=== PATIENT | male | born 1970 | race Caucasian/White ===

== ENCOUNTER 2017-11-14 15:55 | Emergency (ER) | payer OTHER ==
[~2017-11-14] VITALS: Ht 172.7 cm; Wt 91.0 kg
[~2017-11-14 15:55] MED LIST: AMPH20TA2 PO; OXYC-57 PO; TRAM-10 PO; TRAZ50TA35 PO
[2017-11-14 15:56] VITALS: TEMP 36.8; Ht 172.7 cm; Wt 91.0 kg
[2017-11-14] MEDS ORDERED: PROPARACAINE HCL 0.5% OP SOLN 15 ML BTL OP STA (16:06)
[2017-11-14] MEDS ORDERED: AMPH10TA2 PO (16:28)
[2017-11-14] MEDS ORDERED: OXYC-57 PO (16:45)
--- NOTE | 2017-11-14 16:45 | EMERGENCY ROOM VISIT NOTE ---
History First contact with patient: 15:58 Chief Complaint: EYE ASSESSMENT Stated Complaint: GOT SOMETHING IN EYE History of Present Illness The patient is a 47 year old male who presents to the Emergency Room via private vehicle accompanied by male with complaints of "got something in eye". The patient states that earlier today he was carrying a box, and the flap came up and struck him in the right eye. He notes pain rated as a 10/10 in this eye. He states that it is difficult to open the eye secondary to pain. He notes some decreased vision but no vision loss. There is also photophobia. He notes a history of a torn retina years ago. Tetanus UTD. Review of Systems A complete 6-point Review of Systems was discussed with the patient, with pertinent positives and negatives listed in the History of Present Illness. All remaining Review of Systems questions can be considered negative unless otherwise specified. Past Medical/Surgical History Medical Problems: (1) ATTN DEFICIT W HYPERACT (2) DEPRESSIVE DISORDER NEC Social History Alcohol Use: none Drug Use: none Marital Status: Housing Status: lives with family Occupation Status: employed Current/Historical Medications Scheduled Amphetamine-Dextroamphetamine 10MG (Adderall 10MG), 10 MG PO BID Scheduled PRN Oxycodone/Acetaminophen 5MG/325MG (Percocet 5MG/325MG), 1 TAB PO Q4H PRN for Pain Physical Exam Vital Signs Date Time Temp Pulse Resp B/P (MAP) Pulse Ox O2 Delivery O2 Flow Rate FiO2 11/14/17 17:19 89 16 129/80 96 11/14/17 15:56 36.8 93 18 135/85 97 Room Air Right Eye Acuity: 20/70, without correction Left Eye Acuity: 20/30 Physical Exam VITAL SIGNS - Vital signs and nursing notes were reviewed. Stable. GENERAL - 47-year-old male appearing his stated age. Communicates well with provider and answers questions appropriately. HEAD - Normocephalic, Atraumatic. No Gonzalez's Sign or Raccoon's Eyes. No depressed skull fractures palpable. EYES - PERRL with EOMI bilaterally. Sclera without noticeable foreign body or excoriations. bulbar injection noted in the bilateral eyes. Without subconjunctival hemorrhage. Palpebral conjunctiva pink and moist with no injection or discharge noted. Slit lamp examination performed as further described. EARS - No deformities of external structures noted on gross examination bilaterally. Handle of malleus, umbo, cone of light, pars tensa/flaccid all easily visualized. NOSE - Midline and without cyanosis. Without discharge. Slit Lamp Examination was performed of the R eye(s). Alcaine drops were applied to the affected eye(s) for proper anesthetization. The affected eye(s) were stained with Fluorescein stain to precipitate adequate visualization of any conjunctival/scleral excoriations or ulcers. The patient's face was comfortably rested on the chin guard of the slit lamp apparatus. The lights were dimmed and the affected eye(s) were thoroughly examined under microscopy using the blue light. Diffuse 1oclock medial/superior R corneal uptake was present in the R eye. Additionally, the eye(s) were examined under microscopy using the regular light. Close examination revealed a small corneal laceration. Patient tolerated the procedure well and no complications were met. Medical Decision & Procedures Medications Administered Medications (Trade) Dose Ordered Sig/Jonathon Route Start Time Stop Time Status Last Admin Dose Admin Ofloxacin (Ocuflox 0.3% Oph Soln) 1 drops NOW STAT OP 11/14/17 16:55 11/14/17 16:56 DC 11/14/17 17:19 1 DROPS Medical Decision Patient was seen and evaluated as above. He presents with R eye pain. Slit lamp reveals R eye corneal laceration with uptake persistence after rinsing stain. Negative Octavia sign. No hyphema. Alcaine alleviated pain. I called Dr. Jiang ( dye lab technician) and discussed case. He will be started on ofloxacin and percocet. He is to follow up with Dr. Jiang's office tomorrow by calling them tomorrow am. He is to return with worsening. The patient was educated upon management, had questions answered prior to discharge, and was discharged home in good condition. No red flags in PDMP. In the evaluation and treatment of this patient, the following differential diagnoses were considered: Corneal Abrasion, Conjunctivitis, Eye Contusion, Globe Injury, Orbital Floor Injury (Blowout Fracture), Corneal Ulcer, Keratitis , Herpes Zoster Opthalmic, Blepharitis, Orbital Cellulitis, Iritis, Scleritis/ Episcleritis, Uveitis, Temporal Arteritis, Subconjunctival Hemorrhage. Impression Primary Impression: Corneal laceration of right eye Departure Information Dispostion Home / Self-Care Condition GOOD Prescriptions Oxycodone/Acetaminophen 5MG/325MG (PERCOCET 5MG/325MG) Tab 1 TAB PO Q4H Y for Pain, #18 TAB For Initial Treatment Prov: Haider Walters PA-C 11/14/17 Referrals No Doctor, Assigned (PCP) Gunnar Jiang D.O. Patient Instructions [facility] Additional Instructions You have been treated in the Emergency Department for R eye cut/laceration . You have received pain medicine in the emergency department which impairs your ability to operate a vehicle. It is illegal for you to drive after receiving these medicines. You have been prescribed PERCOCET to be used for pain control. This is a narcotic medication. You cannot drive or consume alcohol while on this medicine. This medicine should only be used for pain that cannot be controlled with [id number] pain medicines. You were prescribed Ofloxacin to be used every 6 hours for 7 days. This is an antibiotic. Stop this medication and contact a medical provider if you were to develop any significant adverse side effects including: wheezing, shortness of breath, passing out, vomiting, or a diffuse rash. Always take antibiotics as directed and COMPLETE the ENTIRE course regardless of the improvement of your symptoms. Avoid rubbing your eyes for the next few days as this can cause irritation. Wear sunglasses when outside to help minimize your pain. You should relax in a quiet, dark room to help minimize your symptoms. You should seek evaluation of your eye by an dye lab technician following your visit to the Emergency Department. You should call the dye lab technician as soon as possible to make an appointment for evaluation of your follow-up care. (DR. JIANG said to call his office tomorrow to be seen by one of the doctors there tomorrow) Return to the emergency department if you develop the following symptoms despite treatment course outlined above: blurry vision, loss of vision, fever, intractable pain, increased redness, swelling, or purulent discharge.
[2017-11-14] MEDS ORDERED: OFLOXACIN 0.3% OP SOLN 5 ML BTL OP STA (16:55)
[2017-11-14 17:19] VITALS: BP 129/80; PULSE 89; O2SAT 96
== END 2017-11-14 17:23 | disposition home or self-care (01) ==
LOC: C.EDB 15:56 → C.EDD 17:23
DX: S05.31XA Ocular laceration without prolapse or loss of intraocular tissue, right eye, initial encounter (principal); F90.9 Attention-deficit hyperactivity disorder, unspecified type; Z79.899 Other long term (current) drug therapy; Z86.59 Personal history of other mental and behavioral disorders; X58.XXXA Exposure to other specified factors, initial encounter